=== PATIENT | male | born 1985 | race Asian ===

== ENCOUNTER 2023-05-02 17:00 | Emergency (ER) | payer SELFPAY ==
[~2023-05-02] VITALS: Ht 175.3 cm; Wt 62.5 kg
[2023-05-02] MEDS ORDERED: methocarbamoL 750 MG TAB PO ONE (22:20)
[2023-05-02] MEDS ORDERED: NAPROXEN 250 MG TAB PO ONE (22:20)
[2023-05-02] MEDS ORDERED: NAPR-837 PO (23:09)
[2023-05-02] MEDS ORDERED: METH-1165 PO (23:09)
[2023-05-02 23:32] VITALS: BP 130/78; TEMP 97.9; O2SAT 100
== END 2023-05-02 23:38 | disposition home or self-care (01) ==
LOC: M ED 17:00
DX: S46.812A Strain of other muscles, fascia and tendons at shoulder and upper arm level, left arm, initial encounter (principal); X50.0XXA Overexertion from strenuous movement or load, initial encounter; F17.200 Nicotine dependence, unspecified, uncomplicated; F10.10 Alcohol abuse, uncomplicated; Z79.1 Long term (current) use of non-steroidal anti-inflammatories (NSAID); Z79.899 Other long term (current) drug therapy